=== PATIENT | female | born 1940 | race Two or more races ===

== ENCOUNTER 2017-08-31 15:51 | Inpatient (IN) | payer MEDICARE, OTHER ==
[~2017-08-31] VITALS: Ht 165.1 cm; Wt 71.2 kg
[~2017-08-31 15:51] MED LIST: ACET-868 PO; BISO5TAB2 PO; LOVA40TA2 PO; QUET25TA PO; RIVA1.5C7 PO
[2017-08-31] MEDS ORDERED: QUET200T PO (16:21)
[2017-08-31] MEDS ORDERED: ASPI-1169 PO (16:21)
[2017-08-31] MEDS ORDERED: ATOR10TA PO (16:21)
[2017-08-31] MEDS ORDERED: NA P133E RC (16:22)
[2017-08-31] MEDS ORDERED: MAGN400O6 PO (16:22)
[2017-08-31] MEDS ORDERED: CARB15DR49 RIGHT EAR (16:22)
[2017-08-31] MEDS ORDERED: GUAI5SYR PO (16:22)
[2017-08-31] MEDS ORDERED: CHOL100044 PO (16:22)
[2017-08-31] MEDS ORDERED: VITA400C68 PO (16:22)
[2017-08-31] MEDS ORDERED: BISA10SU8 RC (16:22)
[2017-08-31] MEDS ORDERED: METO25TA20 PO (16:22)
[2017-08-31] MEDS ORDERED: ONDA4TAB5 PO (16:22)
[2017-08-31] MEDS ORDERED: CERA355L TP (16:22)
[2017-08-31] MEDS ORDERED: DIPH28CR10 TP (16:22)
[2017-08-31] MEDS ORDERED: [UNRECOGNIZED DRUG - CODE] TP (16:22)
[2017-08-31] MEDS ORDERED: MAG30ORA PO (16:22)
[2017-08-31] MEDS ORDERED: RIVA6CAP5 PO (16:22)
[2017-08-31] MEDS ORDERED: VITA40TA PO (16:23)
[2017-08-31 16:29] LABS: BASOPHILS # (AUTO) 0.1 /CMM (0.0-0.2); BASOPHILS % (AUTO) 0.8 % (0.0-2.0); EOSINOPHILS # (AUTO) 0.3 /CMM (0.0-0.7); EOSINOPHILS % (AUTO) 3.2 % (0.0-6.0); HEMATOCRIT 43 % (33-45); HEMOGLOBIN 14.2 g/dL (11.5-14.8); LYMPHOCYTES # (AUTO) 3.4 /CMM (0.8-4.8); LYMPHOCYTES % (AUTO) 33.6 % (20.0-44.0); MEAN CORPUSCULAR HEMOGLOBIN 30 PG (26.0-33.0); MEAN CORPUSCULAR HGB CONC 33 g/dl (31.0-36.0); MEAN CORPUSCULAR VOLUME 90 fL (82-100); MONOCYTES # (AUTO) 0.9 /CMM (0.1-1.30); MONOCYTES % (AUTO) 8.4 % (2.0-12.0); NEUTROPHILS # (AUTO) 5.5 /CMM (1.8-8.9); PLATELET COUNT (AUTO) 319 /CMM (150-450); RDW COEFFICIENT OF VARIATION 12.7 (11.5-15.0); RED BLOOD CELL COUNT(AUTO) 4.73 MIL/uL (4.0-5.2); WHITE BLOOD COUNT (AUTO) 10.2 K/uL (4.3-11.0)
[2017-08-31 16:35] LABS: CALCIUM, SERUM 9.7 mg/dL (8.5-10.1); CARBON DIOXIDE 27 mmol/L (21-32); CHLORIDE 108 mmol/L (98-107); GLUCOSE 102 mg/dL (74-106); POTASSIUM 4.7 mmol/L (3.5-5.1); SODIUM SERUM 144 mmol/L (136-145); UREA NITROGEN, BLOOD 13 mg/dL (7-18)
[2017-08-31 16:41] LABS: ACETAMINOPHEN < 2 ug/ml (10-30); ALANINE AMINOTRANSFERASE 15 U/L (12-78); ALBUMIN 3.7 g/dL (3.4-5.0); ALCOHOL, BLOOD < 3 mg/dL (0-0); ALKALINE PHOSPHATASE 71 U/L (46-116); ASPARTATE AMINOTRANSFERASE 20 U/L (15-37); BILIRUBIN,DIRECT 0.2 mg/dL (0.0-0.2); BILIRUBIN,TOTAL 0.7 mg/dL (0.2-1.0); SALICYLATE 0.8 mg/dL (2.8-20.0); TOTAL PROTEIN, SERUM 7.5 g/dL (6.4-8.2)
[2017-08-31 17:32] LABS: APPEARANCE,URINE Clear (CLEAR); BILIRUBIN,URINE Negative (NEGATIVE); BLOOD, URINE Trace-intact Ery/uL (NEGATIVE); COLOR,URINE Yellow (YELLOW); KETONES,URINE Negative (NEGATIVE); LEUKOCYTE ESTERASE ,URINE Negative (NEGATIVE); NITRITE, URINE Negative (NEGATIVE); PROTEIN,URINE Negative (NEGATIVE); UGLUCOSE Negative (NEGATIVE); UROBILINOGEN,URINE 0.2 EU/dL (0.2)
[2017-08-31 17:41] LABS: BACTERIA,URINE Rare /HPF (None Seen); SQUAMOUS EPITHELIAL CELL,UR Few /HPF (None Seen); WBC,URINE NONE SEEN /HPF (0-3)
[2017-08-31] MEDS ORDERED: ACETAMINOPHEN 325 MG TABLET PO PRN (23:00)
[2017-08-31] MEDS ORDERED: LORAZEPAM 0.5 MG TABLET PO PRN (23:00)
[2017-08-31] MEDS ORDERED: ZOLPIDEM TARTRATE 5 MG TABLET PO PRN (23:00)
[2017-08-31] MEDS ORDERED: MAGNESIUM HYDROXIDE 30 ML UDC PO PRN (23:00)
[2017-08-31] MEDS ORDERED: MAG HYDROX/AL HYDROX/SIMETH 30 ML UDC PO PRN (23:00)
[2017-09-01 00:05] VITALS: BP 157/92
[2017-09-01] MEDS ORDERED: GUAIFENESIN/D-METHORPHAN HB 5 ML UDC PO PRN (04:00)
[2017-09-01] MEDS ORDERED: NA PHOS,M-B/NA PHOS,DI-BA 1 EA ENEMA RC PRN (04:00)
[2017-09-01] MEDS ORDERED: ACETAMINOPHEN 325 MG TABLET PO PRN (04:00)
[2017-09-01] MEDS ORDERED: MAG HYDROX/AL HYDROX/SIMETH 30 ML UDC PO PRN (04:00)
[2017-09-01] MEDS ORDERED: MAGNESIUM HYDROXIDE 30 ML UDC PO PRN (04:00)
[2017-09-01] MEDS ORDERED: BISACODYL SUPP (10 MG) 10 MG/SUPP.RECT SUPP.RECT RC PRN (04:00)
[2017-09-01 08:00] VITALS: BP 148/89
[2017-09-01] MEDS: VITAMIN E 400 UNIT CAPSULE PO SCH (08:46)
[2017-09-01] MEDS: ASPIRIN 81 MG TAB.CHEW PO SCH (08:47)
[2017-09-01] MEDS: METOPROLOL TARTRATE 25 MG TABLET PO SCH ×2 (08:47→21:00)
[2017-09-01] MEDS: RIVASTIGMINE TARTRATE 1.5 MG CAPSULE PO SCH ×2 (08:48→16:59)
[2017-09-01] MEDS: CHOLECALCIFEROL 1,000 UNIT TABLET (VIT D3) PO SCH (08:51)
[2017-09-01] MEDS ORDERED: CARBAMIDE PEROXIDE OTIC 15 ML BOTTLE RIGHT EAR SCH (09:00)
[2017-09-01 16:00] VITALS: BP 136/78
[2017-09-01] MEDS: QUETIAPINE FUMARATE 25 MG TABLET PO SCH ×2 (16:59→21:47)
[2017-09-01] MEDS: ATORVASTATIN 10 MG TABLET PO SCH (21:47)
[2017-09-02] MEDS: VITAMIN E 400 UNIT CAPSULE PO SCH (08:35)
[2017-09-02] MEDS: CHOLECALCIFEROL 1,000 UNIT TABLET (VIT D3) PO SCH (08:35)
[2017-09-02 08:36] VITALS: BP 142/64
[2017-09-02] MEDS: METOPROLOL TARTRATE 25 MG TABLET PO SCH ×2 (08:36→21:47)
[2017-09-02] MEDS: ASPIRIN 81 MG TAB.CHEW PO SCH (08:36)
[2017-09-02] MEDS: QUETIAPINE FUMARATE 25 MG TABLET PO SCH ×3 (08:36→21:48)
[2017-09-02] MEDS: RIVASTIGMINE TARTRATE 1.5 MG CAPSULE PO SCH ×2 (08:36→16:39)
[2017-09-02 16:09] VITALS: BP 110/66
[2017-09-02 20:00] VITALS: BP 150/92
[2017-09-02] MEDS: ATORVASTATIN 10 MG TABLET PO SCH (21:48)
[2017-09-03 08:00] VITALS: BP 141/100
[2017-09-03] MEDS: METOPROLOL TARTRATE 25 MG TABLET PO SCH ×2 (08:37→22:02)
[2017-09-03] MEDS: QUETIAPINE FUMARATE 25 MG TABLET PO SCH ×3 (08:37→22:01)
[2017-09-03] MEDS: ASPIRIN 81 MG TAB.CHEW PO SCH (08:38)
[2017-09-03] MEDS: RIVASTIGMINE TARTRATE 1.5 MG CAPSULE PO SCH ×2 (08:38→17:13)
[2017-09-03] MEDS: CHOLECALCIFEROL 1,000 UNIT TABLET (VIT D3) PO SCH (08:38)
[2017-09-03] MEDS: VITAMIN E 400 UNIT CAPSULE PO SCH (08:39)
[2017-09-03 15:49] VITALS: BP 132/90
[2017-09-03 20:28] VITALS: BP 144/74
[2017-09-03] MEDS: ATORVASTATIN 10 MG TABLET PO SCH (22:02)
[2017-09-04 08:00] VITALS: BP 147/86
[2017-09-04] MEDS: RIVASTIGMINE TARTRATE 1.5 MG CAPSULE PO SCH ×2 (08:53→17:06)
[2017-09-04] MEDS: ASPIRIN 81 MG TAB.CHEW PO SCH (08:53)
[2017-09-04] MEDS: VITAMIN E 400 UNIT CAPSULE PO SCH (08:54)
[2017-09-04] MEDS: METOPROLOL TARTRATE 25 MG TABLET PO SCH ×2 (08:54→21:20)
[2017-09-04] MEDS: QUETIAPINE FUMARATE 25 MG TABLET PO SCH ×3 (08:54→21:20)
[2017-09-04] MEDS: CHOLECALCIFEROL 1,000 UNIT TABLET (VIT D3) PO SCH (08:54)
[2017-09-04 16:00] VITALS: BP 131/63
[2017-09-04 20:28] VITALS: BP 118/67
[2017-09-04] MEDS: ATORVASTATIN 10 MG TABLET PO SCH (21:20)
[2017-09-05 08:00] VITALS: BP 110/60
[2017-09-05] MEDS: RIVASTIGMINE TARTRATE 1.5 MG CAPSULE PO SCH ×2 (08:29→16:30)
[2017-09-05] MEDS: VITAMIN E 400 UNIT CAPSULE PO SCH (08:29)
[2017-09-05] MEDS: ASPIRIN 81 MG TAB.CHEW PO SCH (08:30)
[2017-09-05] MEDS: METOPROLOL TARTRATE 25 MG TABLET PO SCH ×2 (08:30→21:37)
[2017-09-05] MEDS: CHOLECALCIFEROL 1,000 UNIT TABLET (VIT D3) PO SCH (08:30)
[2017-09-05] MEDS: QUETIAPINE FUMARATE 25 MG TABLET PO SCH ×3 (08:34→21:37)
[2017-09-05 16:13] VITALS: BP 150/99
[2017-09-05 20:00] VITALS: BP 121/67
[2017-09-05] MEDS: ATORVASTATIN 10 MG TABLET PO SCH (21:37)
[2017-09-06 01:55] VITALS: BP 121/67
[2017-09-06 08:00] VITALS: BP 120/60
[2017-09-06] MEDS: VITAMIN E 400 UNIT CAPSULE PO SCH (08:22)
[2017-09-06] MEDS: RIVASTIGMINE TARTRATE 1.5 MG CAPSULE PO SCH (08:22)
[2017-09-06] MEDS: CHOLECALCIFEROL 1,000 UNIT TABLET (VIT D3) PO SCH (08:23)
[2017-09-06 08:24] VITALS: BP 120/60
[2017-09-06] MEDS: ASPIRIN 81 MG TAB.CHEW PO SCH (08:24)
[2017-09-06] MEDS: METOPROLOL TARTRATE 25 MG TABLET PO SCH (08:24)
[2017-09-06] MEDS: QUETIAPINE FUMARATE 25 MG TABLET PO SCH (08:24)
== END 2017-09-06 14:30 | DRG 885 ==
LOC: ER 15:54 → GPS 18:57
PROVIDERS: ADMIT Psychiatry & Neurology Psychiatry; ATTEND Psychiatry & Neurology Psychiatry
DX: F29 Unspecified psychosis not due to a substance or known physiological condition (principal); F03.91 Unspecified dementia, unspecified severity, with behavioral disturbance; J44.9 Chronic obstructive pulmonary disease, unspecified; E55.9 Vitamin D deficiency, unspecified; I25.10 Atherosclerotic heart disease of native coronary artery without angina pectoris; I10 Essential (primary) hypertension; Z73.6 Limitation of activities due to disability; E78.5 Hyperlipidemia, unspecified; F41.9 Anxiety disorder, unspecified; Z79.82 Long term (current) use of aspirin; E66.9 Obesity, unspecified; Z68.26 Body mass index [BMI] 26.0-26.9, adult
CPT/HCPCS: 36415; 70450-TC; 80048-TC; 80076-TC; 80305; 81000-TC; 85025-TC; 87081-TC; 93971-TC; A4606; G0480; Z7610

== ENCOUNTER 2017-09-13 19:27 | Inpatient (IN) | payer MEDICARE, OTHER ==
[~2017-09-13] VITALS: Ht 162.6 cm; Wt 70.3 kg
[~2017-09-13 19:27] MED LIST changes: +ASPI-1169 PO; +ATOR10TA PO; +BISA10SU8 RC; -BISO5TAB2 PO; +CARB15DR49 RIGHT EAR; +CERA355L TP; +CHOL100044 PO; +DIPH28CR10 TP; +GUAI5SYR PO; -LOVA40TA2 PO; +MAG30ORA PO; +MAGN400O6 PO; +METO25TA20 PO; +NA P133E RC; +ONDA4TAB5 PO; +QUET200T PO; -QUET25TA PO; -RIVA1.5C7 PO; +RIVA6CAP5 PO; +VITA400C68 PO; +VITA40TA PO; +[UNRECOGNIZED DRUG - CODE] TP
[2017-09-13 21:01] LABS: BASOPHILS # (AUTO) 0.1 /CMM (0.0-0.2); BASOPHILS % (AUTO) 1.5 % (0.0-2.0); HEMATOCRIT 45 % (33-45); HEMOGLOBIN 15.4 g/dL (11.5-14.8); LYMPHOCYTES % (AUTO) 33.1 % (20.0-44.0); MEAN CORPUSCULAR HGB CONC 34 g/dl (31.0-36.0); MEAN CORPUSCULAR VOLUME 89 fL (82-100); MONOCYTES # (AUTO) 0.6 /CMM (0.1-1.30); MONOCYTES % (AUTO) 6.5 % (2.0-12.0); NEUTROPHILS # (AUTO) 5.2 /CMM (1.8-8.9); NEUTROPHILS % (AUTO) 55.9 % (43.0-81.0); PLATELET COUNT (AUTO) 390 /CMM (150-450); RDW COEFFICIENT OF VARIATION 12.4 (11.5-15.0); RED BLOOD CELL COUNT(AUTO) 5.03 MIL/uL (4.0-5.2); WHITE BLOOD COUNT (AUTO) 9.2 K/uL (4.3-11.0)
[2017-09-13 21:12] LABS: CALCIUM, SERUM 9.7 mg/dL (8.5-10.1); CARBON DIOXIDE 27 mmol/L (21-32); CHLORIDE 106 mmol/L (98-107); GLUCOSE 111 mg/dL (74-106); POTASSIUM 3.2 mmol/L (3.5-5.1); SODIUM SERUM 145 mmol/L (136-145); UREA NITROGEN, BLOOD 14 mg/dL (7-18)
--- NOTE | 2017-09-13 21:15 | NUR ---
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 PATIENT IS ALERT ORIENTED X1, DENIES SI/HI. VSS. NAD NOTED. SKIN WARM AND DRY. ON WHEELCHAIR.
[2017-09-13 21:18] LABS: ALANINE AMINOTRANSFERASE 17 U/L (12-78); ALBUMIN 3.8 g/dL (3.4-5.0); ALKALINE PHOSPHATASE 93 U/L (46-116); ASPARTATE AMINOTRANSFERASE 20 U/L (15-37); BILIRUBIN,DIRECT 0.1 mg/dL (0.0-0.2); BILIRUBIN,TOTAL 0.3 mg/dL (0.2-1.0); TOTAL PROTEIN, SERUM 7.9 g/dL (6.4-8.2)
[2017-09-13 21:22] LABS: ACETAMINOPHEN 0 ug/ml (10-30); ALCOHOL, BLOOD < 3 mg/dL (0-0); SALICYLATE 1.6 mg/dL (2.8-20.0)
[2017-09-14] MEDS ORDERED: POTASSIUM CHLORIDE 20 MEQ TAB.PRT.SR PO ONE ×2 (00:19→00:30)
--- NOTE | 2017-09-14 00:30 | NUR ---
COLLECTED URINE VIA ASEPTIC IN-OUT CATHETER, SAMPLE TAKEN. CALLED LAB FOR PUBLICATIONS MANAGER.
--- NOTE | 2017-09-14 00:44 | NUR ---
TRANSFERRED PATIENT TO GPS, NO INCIDENT NOTED.
[2017-09-14] MEDS ORDERED: MAGNESIUM HYDROXIDE 30 ML UDC PO PRN ×2 (01:00→02:30)
[2017-09-14] MEDS ORDERED: MAG HYDROX/AL HYDROX/SIMETH 30 ML UDC PO PRN ×2 (01:00→02:30)
[2017-09-14] MEDS ORDERED: ACETAMINOPHEN 325 MG TABLET PO PRN ×2 (01:00→02:30)
--- NOTE | 2017-09-14 01:58 | NUR ---
ADMISSION NOTES ADMITTED THIS 76 Y/O FEMALE PATIENT ADMIT FROM [facility]/ , PT. INTIALLY CAME FROM [facility] . PT IS ON 5150 HOLD FOR GD ,DTO , PER HOLD PT. IS HITTING OTHER RESIDENTS ,STRIKING OUT STAFF REFUSING MEDS, AGGRESSIVE, UNPREDICTABLE CONFUSED, DISORGNIZE , DISORIENTED ,REFUSING CARE NON COMPLIANT WITH MEDICATIONS ,DELUSIONAL , UPON FACE TO FACE ASSESSMENT PATIENT IS A&O X1 AGRESSIVE UNCOOPERTIVE PARANOID , PT. IS POOR HISTORIAN, POOR INSIGHT ,IMPARIED JUDGEMENT , POOR HYGINE V/S WNL, NO ACUTE DISTRESS NOTED, HX OF SCHIZOPHRENIA DISORDER ,DEMENTIA , ANXIETY,INSOMNIA DEPRESSION , HTN,GENERALIZED WEAKNESS , ABNORMAL GAIT, DERMITITIS , ECZEMA,MD AWARE AND NOTIFIED OF THE ADMISSION, SKIN ASSESSMENT DONE . PICTURE TAKEN AND PLACED IN THE CHART, ENCOURAGED PT. VERBALIZED ANY FEELING CONCERN TO STAFF, ORIENT TO UNIT POLICY, WILL CONTINUE TO MONITOR FOR Q15 SAFETY AND BEHAVIOR.
[2017-09-14 02:24] LABS: APPEARANCE,URINE CLOUDY (CLEAR); BILIRUBIN,URINE NEGATIVE (NEGATIVE); BLOOD, URINE 3+ Ery/uL (NEGATIVE); COLOR,URINE YELLOW (YELLOW); KETONES,URINE 1+ (NEGATIVE); LEUKOCYTE ESTERASE ,URINE 1+ (NEGATIVE); NITRITE, URINE NEGATIVE (NEGATIVE); PROTEIN,URINE 3+ mg/dl (NEGATIVE); UGLUCOSE NEGATIVE (NEGATIVE)
[2017-09-14] MEDS ORDERED: GUAIFENESIN/D-METHORPHAN HB 5 ML UDC PO PRN (02:30)
[2017-09-14] MEDS ORDERED: BISACODYL SUPP (10 MG) 10 MG/SUPP.RECT SUPP.RECT RC PRN (02:30)
[2017-09-14] MEDS ORDERED: NA PHOS,M-B/NA PHOS,DI-BA 1 EA ENEMA RC PRN (02:30)
[2017-09-14 02:36] LABS: BACTERIA,URINE Moderate /HPF (None Seen); SQUAMOUS EPITHELIAL CELL,UR Many /HPF (None Seen); WBC,URINE TOO NUMEROUS TO COUN /HPF (0-3)
[2017-09-14 03:15] VITALS: BP 132/75
[2017-09-14] MEDS ORDERED: ONDANSETRON 4 MG TAB.RAPDIS PO PRN (05:00)
[2017-09-14] MEDS ORDERED: Z GUARD REMEDY 2 OZ OINT TP PRN (06:00)
[2017-09-14 08:00] VITALS: BP 135/67
--- NOTE | 2017-09-14 08:00 | NUR ---
GPS RN AM NOTES RECEIVED PT LYING IN BED.PT IS ON 5150 HOLD FOR GD ,DTO , PER HOLD PT. IS CONFUSED, DISORGANIZE , DISORIENTED PATIENT IS A&O X1 AGGRESSIVE UNCOOPERATIVE PARANOID , PT. IS POOR HISTORIAN, POOR INSIGHT ,IMPAIRED JUDGEMENT , POOR HYGIENE V/S WNL, NO ACUTE DISTRESS NOTED, ENCOURAGED PT TO VERBALIZE ANY CONCERNS.WILL CONTINUE TO MONITOR FOR Q15 SAFETY AND BEHAVIOR.
[2017-09-14] MEDS: CHOLECALCIFEROL 1,000 UNIT TABLET (VIT D3) PO SCH (08:20)
[2017-09-14] MEDS: ASPIRIN 81 MG TAB.CHEW PO SCH (08:20)
[2017-09-14] MEDS: METOPROLOL TARTRATE 25 MG TABLET PO SCH ×2 (08:21→22:21)
[2017-09-14] MEDS: VITAMIN E 400 UNIT CAPSULE PO SCH ×2 (08:40→16:49)
[2017-09-14] MEDS ORDERED: Z GUARD REMEDY 2 OZ OINT TP SCH (09:00)
[2017-09-14] MEDS ORDERED: Medication Not On Formulary EA (Vitamin K2 100 MCG) PO SCH (09:00)
[2017-09-14] MEDS ORDERED: CARBAMIDE PEROXIDE OTIC 15 ML BOTTLE RIGHT EAR SCH (09:00)
[2017-09-14] MEDS: CEPHALEXIN MONOHYDRATE 250 MG CAPSULE PO SCH ×2 (12:17→17:24)
[2017-09-14] MEDS: LORAZEPAM 0.5 MG TABLET PO PRN (15:19)
--- NOTE | 2017-09-14 15:34 | NUR ---
PT HAD EPISODE OF AGITATION AND SCREAMING AT OTHER PTS IN THE DINING ROOM ATTEMPTING TO HIT ANOTHER PT.PULLED HER AWAY FROM THE OTHER PT.PLACED PT IN HER ROOM TO CALM HER AND MONITORED CLOSELY FOR SAFETY.PT REFUSED TO TAKE HER PRN ATIVAN PO.WILL TRY LATER.
--- NOTE | 2017-09-14 15:50 | NUR ---
CALLED PT'S FACILITY [facility] AND CLARIFIED DEBROX EARDROPS AND SPOKE TO TIAN AND STATED THAT THE DEBROX EARDROPS WAS NO LONGER USED BY THE PT.NOTIFIED DR CRESPO AND MADE AWARE WITH ORDERS TO DC DEBROX EARDROPS AND CARRIED OUT.
[2017-09-14 16:03] VITALS: BP 140/70
[2017-09-14] MEDS: QUETIAPINE FUMARATE 25 MG TABLET PO SCH (16:50)
--- NOTE | 2017-09-14 17:58 | NUR ---
PT RESTING IN BED SLEEPING BUT AROUSABLE DENYING ANY PAIN OR DISTRESS.PT TOOK ALL HER ORAL MEDS WITHOUT DIFFICULTY.WILL CONTINUE TO MONITOR.
[2017-09-14 20:00] VITALS: BP 150/75
[2017-09-14] MEDS ORDERED: DIVALPROEX SODIUM 125 MG CAP.SPRINK PO SCH (21:00)
[2017-09-14] MEDS: DIVALPROEX SODIUM 125 MG CAP.SPRINK PO SCH (22:20)
[2017-09-14] MEDS: CLOTRIMAZOLE 1% 15 GM TUBE TP SCH (22:20)
[2017-09-14] MEDS: ATORVASTATIN 10 MG TABLET PO SCH (22:22)
[2017-09-14] MEDS: Z GUARD REMEDY 2 OZ OINT TP SCH (22:22)
[2017-09-14] MEDS: QUETIAPINE FUMARATE 100 MG TABLET PO SCH (22:23)
[2017-09-15] MEDS: CEPHALEXIN MONOHYDRATE 250 MG CAPSULE PO SCH ×4 (00:33→17:15)
--- NOTE | 2017-09-15 07:24 | NUR ---
WOUND CARE CONSULT WOUND CARE RECEIVED CONSULT FOR SACRUM REDNESS. WOUND CARE WILL DEFER CONSULT AND TREATMENT PLANS TO SURGICAL TEAM WHO ARE CURRENTLY FOLLOWING. PATIENT WITH THEO AT 15. ALL PRESSURE ULCER PREVENTION MEASURES NOTED TO BE IN PLACE.
[2017-09-15 07:35] LABS: CREATININE 0.8 mg/dL (0.6-1.3)
[2017-09-15 07:59] LABS: CHOLESTEROL 111 mg/dL (<200); HDL CHOLESTEROL 36 mg/dL (40-60); LDL 63 mg/dL (0-99); TRIGLYCERIDES 101 mg/dL (30-150)
[2017-09-15 08:27] VITALS: BP 119/65
[2017-09-15] MEDS: METOPROLOL TARTRATE 25 MG TABLET PO SCH ×2 (09:00→21:00)
--- NOTE | 2017-09-15 09:26 | NUR ---
I have reviewed this patients psychosocial dated 09/01/17 and I can attest to the accuracy of the information therein. There have been no changes since her last assessment. Pt. still appears disorganized and disheveled. Patient's mood and affect are irritable. Patient unable to answer if she has visual and auditory hallucinations. Patient unable to answer if she has any suicidal or homicidal ideations. Patient's insight and judgement are poor. Patient's contact is her daughter Marifer Ayers / .
--- NOTE | 2017-09-15 09:33 | NUR ---
Initial discharge note: Patient resides at the [facility] [address] [place] [address]. . ARIE attempted to contact Maggie the faculty support coordinator at the facility. However, per Bruce, Maggie was in a meeting. ARIE left her a message with her contact information. ARIE will follow-up with Maggie. ARIE attempted to contact patient's daughter Marifer Ayers / , However, she was unavailable. ARIE left Marifer a detailed message with her direct contact information. ARIE will help form a safe and proper discharge.
[2017-09-15] MEDS: VITAMIN E 400 UNIT CAPSULE PO SCH ×2 (09:37→16:58)
[2017-09-15] MEDS: DIVALPROEX SODIUM 125 MG CAP.SPRINK PO SCH ×2 (09:37→21:20)
[2017-09-15] MEDS: QUETIAPINE FUMARATE 25 MG TABLET PO SCH ×2 (09:37→16:58)
[2017-09-15] MEDS: ASPIRIN 81 MG TAB.CHEW PO SCH (09:37)
[2017-09-15] MEDS: CHOLECALCIFEROL 1,000 UNIT TABLET (VIT D3) PO SCH (09:37)
[2017-09-15] MEDS: Z GUARD REMEDY 2 OZ OINT TP SCH ×2 (09:38→21:20)
[2017-09-15] MEDS: CLOTRIMAZOLE 1% 15 GM TUBE TP SCH ×2 (09:44→21:18)
[2017-09-15 16:37] VITALS: BP 145/66
[2017-09-15 20:00] VITALS: BP 111/51
[2017-09-15] MEDS: QUETIAPINE FUMARATE 100 MG TABLET PO SCH (21:18)
[2017-09-15] MEDS: ATORVASTATIN 10 MG TABLET PO SCH (21:19)
[2017-09-16] MEDS: CEPHALEXIN MONOHYDRATE 250 MG CAPSULE PO SCH ×4 (01:05→18:00)
[2017-09-16 09:00] VITALS: BP 130/59
[2017-09-16] MEDS: DIVALPROEX SODIUM 125 MG CAP.SPRINK PO SCH ×2 (09:01→20:51)
[2017-09-16] MEDS: CLOTRIMAZOLE 1% 15 GM TUBE TP SCH ×2 (09:01→20:51)
[2017-09-16] MEDS: CHOLECALCIFEROL 1,000 UNIT TABLET (VIT D3) PO SCH (09:02)
[2017-09-16] MEDS: Z GUARD REMEDY 2 OZ OINT TP SCH ×2 (09:02→20:52)
[2017-09-16] MEDS: QUETIAPINE FUMARATE 25 MG TABLET PO SCH ×2 (09:02→18:00)
[2017-09-16] MEDS: ASPIRIN 81 MG TAB.CHEW PO SCH (09:02)
[2017-09-16] MEDS: VITAMIN E 400 UNIT CAPSULE PO SCH ×2 (09:02→18:00)
--- NOTE | 2017-09-16 09:30 | NUR ---
DR. JOSEPH IN TO SEE PT.DR. CRESPO IN EARLIER.
[2017-09-16] MEDS: METOPROLOL TARTRATE 25 MG TABLET PO SCH ×2 (09:43→20:52)
[2017-09-16 16:00] VITALS: BP 114/67
--- NOTE | 2017-09-16 18:18 | NUR ---
PT. 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
[2017-09-16 20:00] VITALS: BP 115/62
[2017-09-16] MEDS: QUETIAPINE FUMARATE 100 MG TABLET PO SCH (20:51)
[2017-09-16] MEDS: ATORVASTATIN 10 MG TABLET PO SCH (20:51)
[2017-09-17] MEDS: CEPHALEXIN MONOHYDRATE 250 MG CAPSULE PO SCH ×4 (00:01→17:03)
--- NOTE | 2017-09-17 07:30 | NUR ---
GPS RN NOTES PATIENT RECEIVED RESTING INSIDE ROOM, AWAKE, ALERT AND ORIENTED TO SELF BUT NOT TO STAFF, CURRENT TIME/DATE, SITUATION. PATIENT REORIENTED. PATIENT CALM AND RELAXED. VERBALLY RESPONSIVE. BREATHING EVEN AND UNLABORED. NO SOB OR ACUTE DISTRESS NOTED. BED ALARM ON. WILL CONTINUE TO MONITOR. BED LOCKED AND IN LOW POSITION. BILATERAL SIDE RAILS UP AND LOCKED. CALL LIGHT WITHIN EASY REACH
[2017-09-17] MEDS: CLOTRIMAZOLE 1% 15 GM TUBE TP SCH ×2 (07:38→22:02)
[2017-09-17 08:00] VITALS: BP 134/68
[2017-09-17] MEDS: Z GUARD REMEDY 2 OZ OINT TP SCH ×2 (08:12→22:00)
[2017-09-17] MEDS: DIVALPROEX SODIUM 125 MG CAP.SPRINK PO SCH ×2 (08:18→21:59)
[2017-09-17] MEDS: METOPROLOL TARTRATE 25 MG TABLET PO SCH ×2 (08:18→22:01)
[2017-09-17] MEDS: QUETIAPINE FUMARATE 25 MG TABLET PO SCH ×2 (08:18→17:03)
[2017-09-17] MEDS: VITAMIN E 400 UNIT CAPSULE PO SCH ×2 (08:18→17:02)
[2017-09-17] MEDS: ASPIRIN 81 MG TAB.CHEW PO SCH (08:18)
[2017-09-17] MEDS: CHOLECALCIFEROL 1,000 UNIT TABLET (VIT D3) PO SCH (08:18)
[2017-09-17 16:42] VITALS: BP 138/69
--- NOTE | 2017-09-17 18:42 | NUR ---
GPS RN NOTES PATIENT RESTING INSIDE ROOM. AWAKE, ALERT AND ORIENTED TO SELF BUT NOT TO CURRENT DATE/TIME, PLACE, SITUATION. RE-ORIENTED PATIENT NEEDED. PATIENT VERBALLY RESPONSIVE, RESPONDS TO VERBAL AND TACTILE STIMULI. BREATHING EVEN AND UNLABORED. NO SOB OR ACUTE DISTRESS NOTED. DENIES ANY PAIN OR DISCOMFORT. PATIENT AFEBRILE, SKIN DRY AND WARM TO TOUCH. NO CHANGES IN LOC NOTED AT THIS TIME. WILL ENDORSE TO INCOMING SHIFT FOR COLTON. ALL DUE MEDICATIONS GIVEN AND TOLERATED WELL. PROVIDED WITH CALM, SAFE, HAZARD-FREE ENVIRONMENT. ALL NURSING NEEDS ATTENDED AND MET. BED LOCKED AND IN LOW POSITION, BILATERAL UPPER SIDE RAILS UP AND LOCKED. BED ALARM ON. CALL LIGHT WITHIN EASY REACH
[2017-09-17 20:22] VITALS: BP 113/50
[2017-09-17] MEDS: QUETIAPINE FUMARATE 100 MG TABLET PO SCH (21:59)
[2017-09-17] MEDS: ATORVASTATIN 10 MG TABLET PO SCH (21:59)
[2017-09-18] MEDS: CEPHALEXIN MONOHYDRATE 250 MG CAPSULE PO SCH ×4 (00:23→17:11)
[2017-09-18 08:00] VITALS: BP 125/57
[2017-09-18] MEDS: CHOLECALCIFEROL 1,000 UNIT TABLET (VIT D3) PO SCH (08:57)
[2017-09-18] MEDS: ASPIRIN 81 MG TAB.CHEW PO SCH (08:57)
[2017-09-18] MEDS: VITAMIN E 400 UNIT CAPSULE PO SCH ×2 (08:57→17:09)
[2017-09-18] MEDS: QUETIAPINE FUMARATE 25 MG TABLET PO SCH ×2 (08:57→17:09)
[2017-09-18] MEDS: METOPROLOL TARTRATE 25 MG TABLET PO SCH ×2 (08:57→21:50)
[2017-09-18] MEDS: DIVALPROEX SODIUM 125 MG CAP.SPRINK PO SCH ×2 (08:57→21:49)
[2017-09-18] MEDS: Z GUARD REMEDY 2 OZ OINT TP SCH ×2 (08:58→21:52)
[2017-09-18] MEDS: CLOTRIMAZOLE 1% 15 GM TUBE TP SCH ×2 (08:58→19:43)
[2017-09-18 16:00] VITALS: BP 151/70
[2017-09-18 19:58] VITALS: BP 139/61
[2017-09-18] MEDS: QUETIAPINE FUMARATE 100 MG TABLET PO SCH (21:49)
[2017-09-18] MEDS: ATORVASTATIN 10 MG TABLET PO SCH (21:51)
[2017-09-19] MEDS: CEPHALEXIN MONOHYDRATE 250 MG CAPSULE PO SCH ×2 (06:07)
[2017-09-19 08:00] VITALS: BP 145/72
[2017-09-19] MEDS: VITAMIN E 400 UNIT CAPSULE PO SCH ×2 (09:04→17:00)
[2017-09-19] MEDS: QUETIAPINE FUMARATE 25 MG TABLET PO SCH ×2 (09:05→17:00)
[2017-09-19] MEDS: ASPIRIN 81 MG TAB.CHEW PO SCH (09:05)
[2017-09-19] MEDS: CHOLECALCIFEROL 1,000 UNIT TABLET (VIT D3) PO SCH (09:05)
[2017-09-19] MEDS: DIVALPROEX SODIUM 125 MG CAP.SPRINK PO SCH ×2 (09:05→21:04)
[2017-09-19] MEDS: METOPROLOL TARTRATE 25 MG TABLET PO SCH ×2 (09:06→21:05)
[2017-09-19] MEDS: Z GUARD REMEDY 2 OZ OINT TP SCH ×2 (09:09→21:06)
[2017-09-19] MEDS: CLOTRIMAZOLE 1% 15 GM TUBE TP SCH ×2 (09:09→20:38)
[2017-09-19 16:00] VITALS: BP 124/68
[2017-09-19 20:20] VITALS: BP 135/68
[2017-09-19] MEDS: QUETIAPINE FUMARATE 100 MG TABLET PO SCH (21:05)
[2017-09-19] MEDS: ATORVASTATIN 10 MG TABLET PO SCH (21:05)
[2017-09-20] MEDS: CLOTRIMAZOLE 1% 15 GM TUBE TP SCH ×2 (07:30→19:24)
[2017-09-20 08:00] VITALS: BP 158/73
[2017-09-20] MEDS: DIVALPROEX SODIUM 125 MG CAP.SPRINK PO SCH ×2 (08:44→21:00)
[2017-09-20] MEDS: CHOLECALCIFEROL 1,000 UNIT TABLET (VIT D3) PO SCH (08:44)
[2017-09-20] MEDS: ASPIRIN 81 MG TAB.CHEW PO SCH (08:45)
[2017-09-20] MEDS: METOPROLOL TARTRATE 25 MG TABLET PO SCH ×2 (08:45→21:00)
[2017-09-20] MEDS: QUETIAPINE FUMARATE 25 MG TABLET PO SCH ×2 (08:45→17:00)
[2017-09-20] MEDS: Z GUARD REMEDY 2 OZ OINT TP SCH ×2 (08:46→21:00)
[2017-09-20] MEDS: VITAMIN E 400 UNIT CAPSULE PO SCH ×2 (08:47→17:00)
[2017-09-20] MEDS: LORAZEPAM 0.5 MG TABLET PO PRN (11:01)
--- NOTE | 2017-09-20 11:02 | NUR ---
RN NOTE:PATIENT AGITATED AND ANXIOUS MEDICATED WITH ATIVAN 1MG PO .WILL CONTINUE TO MONITOR .
[2017-09-20 16:13] VITALS: BP 112/78
[2017-09-20 20:00] VITALS: BP 116/58
--- NOTE | 2017-09-20 21:05 | NUR ---
GPS RN NOTES: PATIENT REFUSED SCHEDULED MEDS AND TREATMENT. OFFERED X3, DESPITE OF EXPLANATION THE RISKS AND BENEFITS. PATIENT STATED "I WANNA SLEEP" I DON'T BELIEVE IN MEDICATIONS. WILL CONTINUE TO MONITOR.
[2017-09-20] MEDS: QUETIAPINE FUMARATE 100 MG TABLET PO SCH (21:54)
[2017-09-20] MEDS: ATORVASTATIN 10 MG TABLET PO SCH (21:54)
[2017-09-21] MEDS: CLOTRIMAZOLE 1% 15 GM TUBE TP SCH ×2 (08:03→20:29)
[2017-09-21 08:25] VITALS: BP 122/59
[2017-09-21] MEDS: DIVALPROEX SODIUM 125 MG CAP.SPRINK PO SCH ×2 (09:05→20:46)
[2017-09-21] MEDS: CHOLECALCIFEROL 1,000 UNIT TABLET (VIT D3) PO SCH (09:05)
[2017-09-21] MEDS: VITAMIN E 400 UNIT CAPSULE PO SCH ×2 (09:05→17:19)
[2017-09-21] MEDS: METOPROLOL TARTRATE 25 MG TABLET PO SCH ×2 (09:06→20:46)
[2017-09-21] MEDS: Z GUARD REMEDY 2 OZ OINT TP SCH ×2 (09:06→20:45)
[2017-09-21] MEDS: ASPIRIN 81 MG TAB.CHEW PO SCH (09:06)
[2017-09-21] MEDS: QUETIAPINE FUMARATE 25 MG TABLET PO SCH ×2 (09:06→17:19)
--- NOTE | 2017-09-21 11:02 | NUR ---
ARIE faxed medication list to Maggie the clinical coordinator at [facility] [address] [place] [address]. . Per her request. Maggie stated that there DON wants to review it before patient is discharged. ARIE will follow-up.
--- NOTE | 2017-09-21 14:28 | NUR ---
ARIE spoke to Irma from [facility] [address] [place] [address]. , who stated that she will arrange transportation for tomorrow. Per Irma, someone from the facility will pick her up tomorrow.
[2017-09-21 16:59] VITALS: BP 128/68
[2017-09-21 20:00] VITALS: BP_SYST 122; BP_SYST 130; BP_DIAS 54; BP_DIAS 60
[2017-09-21] MEDS: QUETIAPINE FUMARATE 100 MG TABLET PO SCH (21:29)
[2017-09-21] MEDS: ATORVASTATIN 10 MG TABLET PO SCH (21:30)
[2017-09-22 08:00] VITALS: BP 130/61
--- NOTE | 2017-09-22 09:52 | NUR ---
Discharge Planning: SW spoke to Maggie, Fashion Supervisor from [facility] [address] [place] [address]; for discharge planning purposes. Per Maggie, facility staff was currently discussing most appropriate way to pick pt up due to safety concerns. According to Maggie, the last time pt was picked up in a private vehicle "she grabbed the steering wheel as we were getting close to the facility." Per Maggie, staff is discussing alternative transportation (i.e. ambulance) and would get back with an update by today. SW will follow up to ensure pt is safely and adequately discharged.
[2017-09-22] MEDS: CLOTRIMAZOLE 1% 15 GM TUBE TP SCH (10:48)
[2017-09-22] MEDS: VITAMIN E 400 UNIT CAPSULE PO SCH (10:50)
[2017-09-22 10:51] VITALS: BP 130/61
[2017-09-22] MEDS: ASPIRIN 81 MG TAB.CHEW PO SCH (10:51)
[2017-09-22] MEDS: METOPROLOL TARTRATE 25 MG TABLET PO SCH (10:51)
[2017-09-22] MEDS: CHOLECALCIFEROL 1,000 UNIT TABLET (VIT D3) PO SCH (10:51)
[2017-09-22] MEDS: QUETIAPINE FUMARATE 25 MG TABLET PO SCH (10:51)
[2017-09-22] MEDS: DIVALPROEX SODIUM 125 MG CAP.SPRINK PO SCH (10:51)
[2017-09-22] MEDS: Z GUARD REMEDY 2 OZ OINT TP SCH (10:52)
--- NOTE | 2017-09-22 15:00 | NUR ---
GPS/RN EXIT CARE AND PRESCRIPTIONS GIVEN TO THE TRANSPORTER. PT REFUSED TO SIGN DISCHARGE INSTRUCTIONS AND LET THE RN TO TAKE THE PICTURES OF THE BODY ON D/C. BELONGINGS RETURNED. REPORT GIVEN TO SARAH PRECIADO @ [facility] [address] [place] [address]. . PT LEFT VIA W/C TO TRANSPORTATION ARRANGED BY THE [facility]
--- NOTE | 2017-09-22 15:13 | NUR ---
RN-CO: Per HUBERO " Chema" it is ok to donate the old wheelchair to the patient.
--- NOTE | 2017-09-22 16:53 | NUR ---
Discharge Plan Pt discharged to [facility] [address] [place] [address]; via [employer] transportation, provided by the facility. Pt has been notified and is in agreement with plan. Pts daughter, Marifer Ayers was also notified.
== END 2017-09-22 15:00 | DRG 885 ==
LOC: ER 19:30 → GPS 23:53
PROVIDERS: ADMIT Psychiatry & Neurology Psychiatry; ATTEND Psychiatry & Neurology Psychiatry
DX: F31.2 Bipolar disorder, current episode manic severe with psychotic features (principal); F03.91 Unspecified dementia, unspecified severity, with behavioral disturbance; N39.0 Urinary tract infection, site not specified; F29 Unspecified psychosis not due to a substance or known physiological condition; I10 Essential (primary) hypertension; F41.9 Anxiety disorder, unspecified; E78.5 Hyperlipidemia, unspecified; Z79.899 Other long term (current) drug therapy; Z79.82 Long term (current) use of aspirin; R26.9 Unspecified abnormalities of gait and mobility; L30.9 Dermatitis, unspecified; Z73.6 Limitation of activities due to disability; I25.10 Atherosclerotic heart disease of native coronary artery without angina pectoris; L98.9 Disorder of the skin and subcutaneous tissue, unspecified
CPT/HCPCS: 36415; 80048-TC; 80061-TC; 80076-TC; 80164-TC; 80305; 81000-TC; 82565-TC; 85025-TC; 87081-TC; 87086-TC; 87186-TC; A4606; G0480; Z7610